=== PATIENT | male | born 1965 | race Native Hawaiian/Other Pacific Islander ===

== ENCOUNTER 2018-05-05 03:56 | Outpatient (CLI) | payer OTHER | END 2018-05-05 04:02 | disposition short-term general hospital (02) | LOC: AMB 03:56 | DX: R07.89 Other chest pain (principal) | CPT/HCPCS: A0425; A0427 ==

== ENCOUNTER 2018-05-05 04:08 | Emergency (ER) | payer OTHER ==
[~2018-05-05] VITALS: Ht 180.3 cm; Wt 89.8 kg
[2018-05-05 04:26] LABS: PLATELET COUNT 379 K/uL (142-355)
[2018-05-05 06:11] VITALS: BP 129/89; TEMP 97.5
== END 2018-05-05 06:14 | disposition short-term general hospital (02) ==
LOC: ED 04:08
PROVIDERS: Emergency Medicine
DX: I21.29 ST elevation (STEMI) myocardial infarction involving other sites (principal)
CPT/HCPCS: 80053; 82550; 82553; 84484; 85027; 85379; 93005; 96365; 96375; 99285; J2060; J2270; J3490

== ENCOUNTER 2020-05-15 07:22 | Emergency (ER) | payer OTHER ==
[~2020-05-15] VITALS: Ht 180.3 cm; Wt 81.6 kg
[2020-05-15 07:23] VITALS: TEMP 98
[2020-05-15 07:47] VITALS: BP 129/93
[2020-05-15 07:49] LABS: PLATELET COUNT 295 K/uL (142-355)
[2020-05-15 07:57] LABS: POTASSIUM 3.7 mmol/L (3.6-5.2); SODIUM 132 mmol/L (136-145)
== END 2020-05-15 08:06 | disposition short-term general hospital (02) ==
LOC: ED 07:22
DX: I21.19 ST elevation (STEMI) myocardial infarction involving other coronary artery of inferior wall (principal); I25.2 Old myocardial infarction
CPT/HCPCS: 80053; 82550; 84484; 85027; 93005; 96360; 96365; 96366; 96374; 96375; 96376; 99285; J1644; J2270; J2405